=== PATIENT | female | born 1950 | race Caucasian/White ===

== ENCOUNTER 2019-08-22 09:36 | Emergency (ER) | payer MEDICARE ==
[~2019-08-22] VITALS: Ht 167.6 cm; Wt 136.1 kg
[2019-08-22] MEDS ORDERED: GABAPENTIN300 MG PO (10:43)
[2019-08-22] MEDS ORDERED: PRAVASTATIN SOD40 MG PO (10:44)
[2019-08-22] MEDS ORDERED: ALEVE220 MG PO (10:44)
[2019-08-22] MEDS ORDERED: ONE DAILY WOME1 EACH PO (10:45)
[2019-08-22] MEDS ORDERED: DOXYCYCLINE HY100 MG PO (14:14)
== END 2019-08-22 14:34 | disposition home or self-care (01) ==
LOC: ED 09:36
DX: L03.311 Cellulitis of abdominal wall (principal)
CPT/HCPCS: 74177; 80053; 81001; 83605; 83690; 83735; 85025; 96365; 96366; 96375; 99284-25; J0690; J3370; Q9967